=== PATIENT | female | born 1995 | race Caucasian/White ===

== ENCOUNTER 2017-10-27 09:04 | Emergency (ER) | payer OTHER ==
--- NOTE | 2017-10-27 09:06 | ED Physician Documentation ---
PD HPI FEMALE - Stated complaint Stated Complaint: 19 WEEKS PREG/BLEEDING - History obtained from History obtained from: Patient - History of Present Illness Timing - onset: How many hours ago (1), Today Timing - duration: Hours (1) Timing - details: Abrupt onset (She says she had vaginal pain and abrupt significant red bleeding during intercourse this morning. No abdominal pain per se. She is 19 weeks with good so far.) Associated symptoms: Vaginal pain, Vaginal bleeding. 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 denies: Abdominal Pain, Vomiting, Diarrhea Skin: denies: Rash, Lesions Musculoskeletal: denies: Neck pain, Back pain, Extremity pain Neurologic: denies: Generalized weakness, Near syncope, Syncope PD PAST MEDICAL HISTORY - Past Medical History Cardiovascular: None Respiratory: None Neuro: None Endocrine/Autoimmune: None - Present Medications Home Medications: Ambulatory Orders Medication Instructions Recorded Confirmed Mupirocin 1 applic TP TID #15 oint...g. 10/27/17 PD ED PE NORMAL - Vitals Vital signs reviewed: Yes - General General: Alert and oriented X 3, No acute distress, Well developed/nourished - HEENT HEENT: Moist mucous membranes, Pharynx benign - Neck Neck: Supple, no meningeal sign, No adenopathy - Cardiac Cardiac: RRR, No murmur - Respiratory Respiratory: Clear bilaterally - Abdomen Abdomen: Normal bowel sounds, Soft, Non tender, Non distended, Other (bedside U/ S showing normal IUP c/w dates, good FHR, and anterior placenta. ) - Female Female : Brim Flexer present, Other (No cervical bleeding. Some red blood and clots in the anterior vault. Right inner labial upper portion with 1.5 cm mucosal tear just to the submucosal layer. ) - Rectal Rectal: Deferred - Back Back: No CVA TTP - Derm Derm: Normal color Results - Vitals Vitals: Vital Signs - 24 hr 10/27/17 10:25 Temperature 36.9 C Heart Rate 72 Respiratory 16 Rate Blood Pressure 111/65 O2 Saturation 100 Oxygen O2 Source Room air - Labs Labs: Laboratory Tests 10/27/17 10/27/17 10/27/17 09:30 09:30 09:30 WBC 7.0 RBC 4.21 Hgb 13.0 Hct 36.4 L MCV 86.5 MCH 30.9 MCHC 35.7 RDW 14.1 Plt Count 216 MPV 7.4 L Neut # 5.3 Lymph # 0.9 L [place] # 0.6 Eos # 0.2 Baso # 0.0 Absolute Nucleated RBC 0.00 Nucleated RBC % 0.0 Sodium 134 L Potassium 3.3 L Chloride 105 Carbon Dioxide 22 Anion Gap 7.0 BUN 7 Creatinine 0.6 Estimated GFR (MDRD) 127 Glucose 79 Calcium 9.0 Total Bilirubin 0.3 AST 18 ALT 16 Alkaline Phosphatase 34 L Total Protein 6.6 L Albumin 3.3 Globulin 3.3 Albumin/Globulin Ratio 1.0 Lipase 12 L Blood Type A POSITIVE Antibody Screen NEGATIVE PD MEDICAL DECISION MAKING - ED course Complexity details: considered differential (Initial concern with her being and significant vaginal bleeding was for miscarriage. An IV was started and blood count and typing was done. Her vitals were good however. Bedside ultrasound showed normal intrauterine with an anterior placenta and no signs of bleeding. There is good heartbeat for the fetus. Pelvic exam was then done which showed only little bit of blood in the anterior portion of the vaginal vault. There is no bleeding come from the cervix. Inspection of the inner labia showed actual mucosal tear without any current bleeding until I palpated the area and it was a 1-1/2 cm tear to the submucosal tissue and not any deep structures. He did start using bleeding a little bit at that time. It appeared to be a vaginal source of the bleeding and no signs of miscarriage nor uterine bleeding which was great.), d/w patient Departure - Departure Disposition: 01 Home, Self Care Clinical Impression: Vaginal bleeding Qualifiers: Weeks of gestation: 19 weeks Qualified Code(s): Z3A.19 - 19 weeks gestation of Labial tear Qualifiers: Encounter type: initial encounter Qualified Code(s): S31.41XA - Laceration without foreign body of vagina and vulva, initial encounter Condition: Stable Record reviewed to determine appropriate education?: Yes Instructions: ED Laceration Vaginal Non Obstetric Follow-Up: NORAH Colon [Provider Group] Prescriptions: Mupirocin 1 applic TP TID #15 oint...g. Comments: Cleanse the area with warm water 2 3 times a day and apply ointment such as mupirocin or antibiotic ointment. This should heal up well over the next week. Follow-up with your ADAPTIVE PHYSICAL EDUCATION TEACHER on the as planned. Follow-up sooner if increased pain or significant bleeding again or any concern of infection. Tylenol or ibuprofen are okay for pain at this point in . Discharge Date/Time: 10/27/17 11:06
[2017-10-27] MEDS ORDERED: SODIUM CHLORIDE 0.9% 1,000 ML IV ONE (09:14)
[2017-10-27 09:42] LABS: BASOPHILS % (AUTO) 0.4 %; EOSINOPHILS # (AUTO) 0.2 10^3/uL (0.0-0.7); EOSINOPHILS % (AUTO) 2.8 %; LYMPHOCYTES # (AUTO) 0.9 10^3/uL (1.5-3.5); LYMPHOCYTES % (AUTO) 13.4 %; MEAN CORPUSCULAR HEMOGLOBIN 30.9 pg (27.0-31.0); MEAN CORPUSCULAR HGB CONC 35.7 g/dL (32.0-36.0); MEAN CORPUSCULAR VOLUME 86.5 fL (81.0-99.0); MEAN PLATELET VOLUME 7.4 fL (7.9-10.8); MONOCYTES # (AUTO) 0.6 10^3/uL (0.0-1.0); NEUTROPHILS # (AUTO) 5.3 10^3/uL (1.5-6.6); NEUTROPHILS % (AUTO) 75.4 %; PLT - PLATELET COUNT 216 10^3/uL (130-450); RED BLOOD COUNT 4.21 10^6/uL (4.20-5.40); RED CELL DISTRIBUTION WIDTH 14.1 % (12.0-15.0)
[2017-10-27 09:50] LABS: ALBUMIN 3.3 g/dL (3.2-5.5); BILIRUBIN,TOTAL 0.3 mg/dL (0.2-1.0); CREATININE 0.6 mg/dL (0.4-1.0); TOTAL PROTEIN 6.6 g/dL (6.7-8.2)
[2017-10-27] MEDS ORDERED: KETOROLAC 15 MG/ML VIAL IVP STA (10:16)
[2017-10-27] MEDS ORDERED: MUPIROCIN 2% OINT 1 GM TOP STA (10:16)
[2017-10-27] MEDS ORDERED: ACETAMINOPHEN 325 MG TABLET PO STA (10:16)
[2017-10-27 10:34] VITALS: BP 111/65
== END 2017-10-27 11:06 | disposition home or self-care (01) ==
LOC: ED 09:04
DX: O9A.212 Injury, poisoning and certain other consequences of external causes complicating pregnancy, second trimester (principal); S31.41XA Laceration without foreign body of vagina and vulva, initial encounter; X58.XXXA Exposure to other specified factors, initial encounter; N93.9 Abnormal uterine and vaginal bleeding, unspecified; Z3A.19 19 weeks gestation of pregnancy
CPT/HCPCS: 36415; 80053; 83690; 85025; 86850; 86900; 86901; 99283; A9270

== ENCOUNTER 2018-03-03 08:00 | Outpatient (CLI) | payer OTHER | END 2018-03-03 08:01 | disposition home or self-care (01) | LOC: LAB.R 08:00 | PROVIDERS: ATTEND Registered Nurse | DX: Z36.9 Encounter for antenatal screening, unspecified (principal) | CPT/HCPCS: 87086; 87491; 87591; 87797 ==

== ENCOUNTER 2018-03-03 11:07 | Outpatient (CLI) | payer OTHER ==
[2018-03-03] MEDS ORDERED: LACTATED RINGERS 2,000 ML IV ONE (11:15)
[2018-03-03] MEDS ORDERED: SODIUM CHLORIDE FLUSH 0.9% 10 ML SYRINGE ONE ×2 (11:15→14:58)
[2018-03-03] MEDS: LACTATED RINGERS 1,000 ML IV ONE ×2 (11:40→12:48)
[2018-03-03 15:11] VITALS: BP 108/59
--- NOTE | 2018-03-03 15:26 | Ultrasound Report ---
Procedure Date: 03/03/2018 Accession Number: [id number] / [id number] Procedure: US - OB F/U or Repeat CPT Code: FULL RESULT: EXAM: FOLLOW-UP OBSTETRICAL ULTRASOUND EXAM DATE: 03/03/2018 02:06 PM. CLINICAL HISTORY: Growth, biophysical profile, and MITZI. Office MITZI of 4.6 with transverse lie. COMPARISON: None. TECHNIQUE: Real-time sonographic evaluation of the fetus performed by the film flat inspector. Multiple sales representative health insurance static images were saved for review. DATING: Established EGA 36 weeks 4 days with JELENA 03/27/2018 based on established JELENA. EGA 37 weeks 6 days with JELENA 03/18/2018 based on the current ultrasound. GENERAL EVALUATION Hedrick . Cardiac activity: 152 bpm. movement: Present. Presentation: Cephalic. Placenta: Anterior position. Amniotic fluid: Normal. MITZI 13.5 cm. MVP 4 cm. BIOMETRY Bi-Parietal Diameter (BPD): 9.3 cm, 37 weeks 6 days Head Circumference (HC): 32.9 cm, 37 weeks 2 days Abdominal Circumference (AC): 34.5 cm, 38 weeks 3 days Femur Length (FL): 7.4 cm, 38 weeks 0 days Estimated Weight: 3498 gm. ANATOMY Not assessed MATERNAL STRUCTURES Cervix poorly seen due to late gestational age and nondistended bladder. IMPRESSION: 1. Hedrick intrauterine with gestational age 37 weeks 6 days based on current ultrasound. 2. Estimated weight is 3498 g. 3. Cephalic presentation. EXAM: BIOPHYSICAL PROFILE Breathing = 2 Movement = 2 Tone = 2 Amniotic Fluid = 2 Total 02/19 IMPRESSION: 1. Biophysical profile score 8 of 8. RUTH ANN
== END 2018-03-03 16:20 | disposition home or self-care (01) ==
LOC: WFO 11:07 → FBP 11:09 → WFO 16:20
PROVIDERS: ATTEND Registered Nurse
DX: O41.03X0 Oligohydramnios, third trimester, not applicable or unspecified (principal); Z3A.36 36 weeks gestation of pregnancy; Z36.9 Encounter for antenatal screening, unspecified
CPT/HCPCS: 59025; 76816; 76819; 87086; 87491; 87591; 87797; 96360; 96361; J7120; 99214

== ENCOUNTER 2018-03-04 16:08 | Outpatient (CLI) | payer OTHER | END 2018-03-04 16:09 | disposition home or self-care (01) | LOC: LAB.R 16:08 | PROVIDERS: ATTEND Obstetrics & Gynecology | DX: Z11.3 Encounter for screening for infections with a predominantly sexual mode of transmission (principal) | CPT/HCPCS: 87491; 87591 ==

== ENCOUNTER 2018-03-08 13:53 | Outpatient (CLI) | payer OTHER ==
[2018-03-08 14:21] VITALS: BP 111/68
== END 2018-03-08 14:45 | disposition home or self-care (01) ==
LOC: WFO 13:53 → FBP 13:58 → WFO 14:45
PROVIDERS: ATTEND Obstetrics & Gynecology
DX: O43.893 Other placental disorders, third trimester (principal); Z3A.37 37 weeks gestation of pregnancy
CPT/HCPCS: 59025

== ENCOUNTER 2018-03-11 09:38 | Outpatient (CLI) | payer OTHER ==
[2018-03-11 09:52] VITALS: BP 112/69
== END 2018-03-11 10:20 | disposition home or self-care (01) ==
LOC: WFO 09:38 → FBP 09:46 → WFO 10:20
PROVIDERS: ATTEND Obstetrics & Gynecology
DX: O36.8130 Decreased fetal movements, third trimester, not applicable or unspecified (principal); Z3A.37 37 weeks gestation of pregnancy
CPT/HCPCS: 59025

== ENCOUNTER 2018-03-17 12:05 | Outpatient (CLI) | payer OTHER ==
[2018-03-17 12:17] VITALS: BP 110/61
--- NOTE | 2018-03-18 11:30 | HISTORY & PHYSICAL EXAMINATION ---
DATE OF SERVICE: 03/17/2018 Physician: Scout Garcia MD NOTE FOR LABOR AND DELIVERY ENCOUNTER ON 03/16/2018 HISTORY OF PRESENT ILLNESS: Patient is a 22-year-old, primigravida at 38 weeks and 4 days EGA who had a low amniotic fluid volume noted a week ago. Since then, it has rebounded to 10.66. She feels good movement. Today's NST is reactive, category 1. Baseline is 150s without decels and moderate variability. There are no uterine contractions noted. ASSESSMENT: Reactive nonstress test. Requires recheck with repeat biophysical profile (BPP) later this week to ensure that amniotic fluid volume remains normal. PLAN: Ensure that BPP is scheduled for later in the week, and she has an OB visit on Saturday. TD: 03/18/2018 08:39 LARISA
== END 2018-03-17 12:49 | disposition home or self-care (01) ==
LOC: WFO 12:05 → FBP 12:07 → WFO 12:49
PROVIDERS: ATTEND Obstetrics & Gynecology
DX: O41.03X0 Oligohydramnios, third trimester, not applicable or unspecified (principal); Z3A.38 38 weeks gestation of pregnancy
CPT/HCPCS: 59025

== ENCOUNTER 2018-03-25 17:51 | Inpatient (IN) | payer OTHER ==
[2018-03-25] MEDS ORDERED: LACTATED RINGERS 1,000 ML IV ONE (21:23)
[2018-03-25] MEDS ORDERED: SODIUM CHLORIDE FLUSH 0.9% 10 ML SYRINGE ONE (21:26)
[2018-03-25] MEDS ORDERED: SODIUM CHLORIDE FLUSH 0.9% 10 ML SYRINGE IVP PRN (21:28)
[2018-03-25 21:50] LABS: BASOPHILS % (AUTO) 0.2 %; EOSINOPHILS % (AUTO) 0.4 %; HGB - HEMOGLOBIN 11.3 g/dL (12.0-16.0); LYMPHOCYTES # (AUTO) 0.7 10^3/uL (1.5-3.5); LYMPHOCYTES % (AUTO) 5.2 %; MEAN CORPUSCULAR HEMOGLOBIN 26.3 pg (27.0-31.0); MEAN CORPUSCULAR HGB CONC 33.8 g/dL (32.0-36.0); MEAN CORPUSCULAR VOLUME 77.9 fL (81.0-99.0); MONOCYTES # (AUTO) 1.1 10^3/uL (0.0-1.0); MONOCYTES % (AUTO) 8.4 %; NEUTROPHILS % (AUTO) 85.8 %; PLT - PLATELET COUNT 233 10^3/uL (130-450); RED CELL DISTRIBUTION WIDTH 15.5 % (12.0-15.0); WHITE BLOOD COUNT 12.8 x10^3/uL (4.8-10.8)
[2018-03-25] MEDS ORDERED: PENICILLIN G POTASSIUM 5,000,000 UNIT in SODIUM CHLORIDE 0.9% MINIBAG 100 ML IV ONE (21:59)
[2018-03-25] MEDS ORDERED: fentaNYL 100 MCG/2 ML VIAL IVP PRN (22:00)
[2018-03-25] MEDS ORDERED: LACTATED RINGERS 1,000 ML IV SCH (22:00)
[2018-03-25] MEDS ORDERED: ONDANSETRON 4 MG/2 ML VIAL IVP PRN ×2 (22:01→23:37)
[2018-03-25] MEDS ORDERED: fent/BUPIV 2 MCG/0.125% 250 ML EP ONE (22:44)
[2018-03-25] MEDS ORDERED: METOCLOPRAMIDE 10 MG/2 ML VIAL IVP PRN (23:37)
[2018-03-25] MEDS ORDERED: LACTATED RINGERS 500 ML IV ONE (23:37)
[2018-03-25] MEDS ORDERED: ePHEDrine 50 MG/ML VIAL IVP PRN (23:37)
[2018-03-25] MEDS ORDERED: NALOXONE 0.4 MG/ML VIAL IVP PRN (23:37)
[2018-03-25] MEDS ORDERED: NALBUPHINE 10 MG/ML AMP IVP PRN (23:37)
[2018-03-25] MEDS ORDERED: diphenhydrAMINE INJ 50 MG/ML VIAL IVP PRN (23:37)
[2018-03-26] MEDS ORDERED: TERBUTALINE 1 MG/ML VIAL SUBQ ONE (00:21)
[2018-03-26] MEDS ORDERED: SODIUM CHLORIDE 0.9% 1,000 ML IV ONE (00:23)
[2018-03-26] MEDS ORDERED: SODIUM CHLORIDE FLUSH 0.9% 10 ML SYRINGE IVP SCH (01:00)
[2018-03-26] MEDS ORDERED: OXYTOCIN/SODIUM CHLORIDE 500 ML IV ONE (01:05)
[2018-03-26] MEDS ORDERED: PENICILLIN G POTASSIUM 2,500,000 UNIT in SODIUM CHLORIDE 0.9% 100ML 100 ML IV SCH (02:00)
[2018-03-26] MEDS ORDERED: LIDOCAINE 1% 50 ML MDV ONE (02:55)
[2018-03-26] MEDS ORDERED: miSOPROStol 200 MCG TABLET PR ONE ×2 (03:05→04:25)
[2018-03-26] MEDS ORDERED: METHYLERGONOVINE 0.2 MG/ML AMP ONE (03:05)
[2018-03-26] MEDS ORDERED: METHYLERGONOVINE 0.2 MG/ML AMP IM ONE (03:06)
[2018-03-26] MEDS ORDERED: CARBOPROST TROMETHAMINE 250 MCG/ML AMP IM ONE ×2 (03:07→03:08)
[2018-03-26] MEDS ORDERED: LACTATED RINGERS 2,000 ML IV ONE (03:10)
[2018-03-26] MEDS ORDERED: DIPHENOX/ATROPINE 2.5/0.025 MG TABLET PO ONE ×2 (03:25→03:29)
--- NOTE | 2018-03-26 03:25 | HISTORY & PHYSICAL EXAMINATION ---
DATE OF SERVICE: 03/25/2018 Physician: Yoana Crowley MD CHIEF COMPLAINT: Labor. HISTORY OF PRESENT ILLNESS: The patient has had intermittent contractions all day long and she felt like they were strong enough this evening to come in for evaluation. They are very painful and happening every 3 minutes. No leaking of water at home. No bleeding at home. She was feeling good movement at home. REVIEW OF SYSTEMS: No URI symptoms. No fevers, no nausea or vomiting. PAST MEDICAL HISTORY: Negative. PAST SURGICAL HISTORY: Tonsillectomy. OBSTETRICAL HISTORY: Patient is a G1, P0. Her due date is 03/27/2018 by last menstrual period and by 6-week ultrasound. She had her care transferred from the [facility] at 36 weeks. There, her had been uncomplicated except for a bout of chlamydia that was treated in December with immediate test of cure that was negative, followed by another test of cure here that was negative. After transferring care here, an ultrasound was performed to verify presentation and her amniotic fluid index was found to be low at that time at 4.3. She had an SROM workup that was normal. She was aggressively hydrated, and the next day this improved to 13. She also had a grade 3 placenta. Following this, she had biweekly NST that were normal, as well as weekly BPPs that were normal. She did not have any further episodes of oligohydramnios. labs include blood type A positive, RPR negative, rubella immune, HIV negative, hep B negative, cystic fibrosis negative. Hematocrit 35. One-hour glucose 101, normal anatomy screening with an anterior placenta. ALLERGIES: NO KNOWN DRUG ALLERGIES. MEDICATIONS 1. vitamins daily. 2. Valtrex 500 mg daily. 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 She does not smoke, drink or do drugs and she reports having good support at home. FAMILY HISTORY: No anesthesia complications. OBJECTIVE VITAL SIGNS: The patient is afebrile with normal vital signs. GENERAL: She is alert and pleasant, in no apparent distress. She is resting comfortably, and smiling and talking freely between contractions. During contractions. She is breathing through contractions, crying out, and writhing. ABDOMEN: Soft, nontender and gravid. Estimated weight 7 pounds by [place]. Last vaginal examination was 4 cm dilated, 100% effaced, and 0 station with the nurse. NST is category 1 and has been throughout most of the night with a baseline of 150, moderate long-term variability, accelerations present, decelerations absent. From [id number], the patient had a period of shift in baseline to tachycardia, with a baseline of 170 beats per minute. Moderate long-term variability was maintained. The patient had brief, either variable decelerations versus return to baseline that lasted about 10 seconds with a modesto to 150. BLEEDING: Examination of the pads revealed mucousy normal amount of bloody show on this current pad. Prior pad had an 8 cm diameter area that was coated with bright red blood that was not completely soaking through that area of the pad. IMPRESSION AND PLAN A 22-year-old G1, at 39 weeks and 5 days by last menstrual period, consistent with a 6-week ultrasound, who presents in active spontaneous labor with cervical change here from 3-4 cm while in triage. 1. Will admit for labor. 2. The patient is group B streptococcus positive, and she will receive penicillin for this. 3. The patient had vaginal bleeding that was brisker than normal. Since that time, the amount of bleeding has been a very normal amount of bloody show. She is pain-free between contractions, her uterus is nontender, her current heart tracing is category 1, and her contractions are not showing any abruption pattern. She has had multiple ultrasounds without evidence of placenta previa. At this point, I feel like her bleeding is just normal bloody show for her. However, we will remain aware of her ongoing bleeding. 4. Episode of tachycardia: I do feel like this was what was formerly referred to as a prolonged acceleration. Prior to the episode in the 170s and following, the patient had a baseline of the 150s. During the period of tachycardia, she maintained moderate long-term variability. In the setting of vaginal bleeding, the tachycardia is a bit more concerning, but again NST is now category 1, the patient is not tachycardic. She has no other symptoms and she is not showing any current signs of placental abruption. 5. While I was coming in to assess her, we did an IV fluid bolus and made her n.p.o. The patient would like to go ahead and get an epidural and, at that point, we will change or to clear fluids and we can saline lock her IV if she desires. 6. History of chlamydial infection during . We will strongly encourage antibiotic eye prophylaxis. 7. issues potentially: None identified. The patient is status post Tdap vaccine. She is rubella immune and Rh positive, with no significant medical history. TD: 03/25/2018 22:51 LARISA
[2018-03-26] MEDS ORDERED: ONDANSETRON ODT 4 MG TABLET TL PRN (03:53)
[2018-03-26] MEDS ORDERED: HYDROCORTISONE/PRAMOXINE 10 GM PR PRN (03:53)
[2018-03-26] MEDS ORDERED: diphenhydrAMINE 25 MG CAPSULE PO PRN (03:53)
[2018-03-26] MEDS ORDERED: OXYTOCIN/SODIUM CHLORIDE 250 ML IV ONE (03:53)
[2018-03-26] MEDS ORDERED: WITCH HAZEL/GLYCERIN 1 EACH MED..PAD TOP PRN (04:06)
--- NOTE | 2018-03-26 05:48 | PROCEDURE REPORT ---
DATE OF SERVICE: 03/26/2018 Physician: Yoana Crowley MD DELIVERY: Spontaneous vaginal delivery at term with a hemorrhage. PREDELIVERY DIAGNOSES 1. Intrauterine at 39 weeks and 5 days. 2. Group B strep positive. 3. Spontaneous labor. 4. Vaginal bleeding. POST-DELIVERY DIAGNOSES 1. Status post spontaneous vaginal delivery. 2. hemorrhage, likely due to placental site bleeding and a right vaginal sulcal laceration. PHYSICIAN: Yoana Crowley MD. ANESTHESIA: Epidural. ESTIMATED BLOOD LOSS: 1200 mL. COUNTS: Correct x2. COMPLICATIONS: None apparent. DISPOSITION: Good condition. FINDINGS: 1. Thin meconium-stained amniotic fluid. 2. Liveborn female, Apgars 8 at one minute and 9 at five minutes, she appears AGA. 3. Bilateral periurethral lacerations and a right vaginal sulcal laceration. ANTEPARTUM COURSE: The patient had an uncomplicated , except for a brief period of oligohydramnios that resolved. She also had a grade-3 placenta and was receiving monitoring for these issues. LABOR COURSE: The patient was admitted in spontaneous labor, and at the time of admission, she had vaginal bleeding that was more than expected for labor; however, it was not a large amount, and it was really just this first episode of bleeding that was abnormal. Throughout the rest of the labor, the patient had normal amounts of bloody show. There was a period of time around midnight, where the tracing became category 2 with variable decelerations. These resolved with oxygen and position changes. At that time, the patient was found to be complete in zero station with an intact bag. Intrauterine resuscitation was successful, and the patient was able to labor down. She began having small variables. The head was low, and so pushing was commenced. DELIVERY: The patient pushed for 17 minutes to deliver OA over an intact perineum. There was no nuchal cord. The shoulders and body were easily delivered. The baby was placed on mom's abdomen, and she was warmed, dried, and stimulated. The umbilical cord was left pulsating. The patient had abnormal bleeding from the time of the delivery of the onward. Prior to the delivery of the placenta, there was a steady mild flow of blood that is not typically seen. The umbilical cord was clamped x2 and cut by the father of the baby. Cord blood was obtained for typing, and then the cord was drained. The placenta was delivered about a minute later intact with a 3-vessel cord. It was delivered with a maternal push. There was an adherent clot covering about 20% of the placental surface. The patient had a hemorrhage that started with the of the infant and prior to the placenta. The patient had an ongoing bleed that was persistent and over about 10 minutes time added up to 1200 mL of blood loss. During this time, she received continuous fundal massage with intermittent bimanual massage. Her uterine tone remained excellent throughout. I did not feel any uterine segment atony or floppiness. She received IV pitocin at the time of the clamping of the umbilical cord, 800 mcg of Cytotec [place], 1 dose of Methergine IM, and 1 dose of Hemabate IM. Her IV fluids were opened wide open, and a second IV was placed. Her type and screen was changed to a type and cross. I did a bedside ultrasound, which revealed no products of conception within the uterus, and again the placenta appeared to be intact. Her fundus was firm and 3 cm below the umbilicus during the entire hemorrhage. After about 10 minutes, the bleeding slowed down to a normal amount. She did have a laceration in her right sulcus that was pumping and was probably contributing to a small percent of the estimated blood loss. The focal laceration was closed with a [id number] of 2-0 Vicryl with good hemostasis resulting. Her right periurethral laceration was repaired with interrupted sutures of 2-0 Vicryl. The left periurethral was less deep and not bleeding, and this did not require repair. The patient is tolerating her blood loss well. She is resting comfortably and is feeding her baby. POTENTIAL ISSUES: We will encourage the patient to hydrate and to not get up without assistance, due to her hemorrhage. I will not check a repeat hematocrit, unless she is symptomatic. We will monitor for any excessive ongoing blood losses. Otherwise, no potential problems identified. She is healthy and is status post Tdap vaccination. She is Rh positive and rubella immune. TD: 03/26/2018 04:02 LARISA
[2018-03-26] MEDS: DOCUSATE SODIUM 100 MG CAPSULE PO SCH ×2 (09:41→20:24)
[2018-03-26] MEDS ORDERED: SODIUM CHLORIDE FLUSH 0.9% 10 ML SYRINGE ONE (09:49)
--- NOTE | 2018-03-26 11:20 | PROVIDER PROGRESS NOTE ---
Objective - Vital Signs/Intake & Output Vital Signs: Vital Signs x48h Temp Pulse Resp BP Pulse Ox 03/26/18 11:14 99.9 F H 86 18 103/52 L 99 03/26/18 07:57 98.4 F 92 16 104/57 L 99 03/26/18 06:15 92 18 112/62 100 03/26/18 03:50 98.8 F Intake & Output: Intake & Output 03/23/18 03/24/18 03/25/18 03/26/18 23:59 23:59 23:59 23:59 Output Total 1400 Balance -1400 - Lab Results Fish Bones: 03/25/18 21:30 Other Labs: Lab Results x24hrs 03/25/18 03/25/18 Range/Units 21:30 21:30 WBC 12.8 H (4.8-10.8) x10^3/uL RBC 4.30 (4.20-5.40) 10^6/uL Hgb 11.3 L (12.0-16.0) g/dL Hct 33.5 L (37.0-47.0) % MCV 77.9 L (81.0-99.0) fL MCH 26.3 L (27.0-31.0) pg MCHC 33.8 (32.0-36.0) g/dL RDW 15.5 H (12.0-15.0) % Plt Count 233 (130-450) 10^3/uL MPV 8.0 (7.9-10.8) fL Neut # (Auto) 11.0 H (1.5-6.6) 10^3/uL Lymph # (Auto) 0.7 L (1.5-3.5) 10^3/uL [place] # (Auto) 1.1 H (0.0-1.0) 10^3/uL Eos # (Auto) 0.0 (0.0-0.7) 10^3/uL Baso # (Auto) 0.0 (0.0-0.1) 10^3/uL Absolute Nucleated RBC 0.00 x10^3/uL Nucleated RBC % 0.0 /100WBC Blood Type A POSITIVE Antibody Screen NEGATIVE Crossmatch IS Only See Detail Assessment/Plan - Problem List (1) hemorrhage Impression: S: feeling good, no problems. Eating, ambulating, urinating, well. Mood is OK, no significant pain. Not dizzy or light headed. No CHUNG or CP. O: AVSS, alert smiling, cuddling baby, NAD Abd soft, nt/nd Fundus firm 2cm below U Trace LE edema bilat A/P: 22yo P1 PPD#0 s/p at term complicated by 1200cc PPH due to sulcal laceration and placenta site bleeding. Likely small abruption as well and placenta pathology is pending. Tolerating her (likely) anemia well, discussed hydration and slow position changes. Otherwise anticipate routine care. Rh+, RI, s/p Tdap.
[2018-03-26] MEDS: SIMETHICONE CHEW 80 MG TABLET PO SCH ×2 (11:57→14:57)
[2018-03-26] MEDS: ACETAMINOPHEN 500 MG TABLET PO PRN (23:05)
[2018-03-27] MEDS: ACETAMINOPHEN 500 MG TABLET PO PRN ×2 (10:01→18:16)
[2018-03-27] MEDS: IBUPROFEN 600 MG TABLET PO PRN ×2 (10:02→18:15)
[2018-03-27] MEDS: SIMETHICONE CHEW 80 MG TABLET PO SCH ×2 (10:02→18:14)
[2018-03-27] MEDS: DOCUSATE SODIUM 100 MG CAPSULE PO SCH ×2 (10:02→21:18)
--- NOTE | 2018-03-27 16:42 | PROVIDER PROGRESS NOTE ---
Objective - Vital Signs/Intake & Output Vital Signs: Vital Signs x48h Temp Pulse Resp BP Pulse Ox 03/27/18 09:29 97.9 F 72 17 108/66 100 Intake & Output: Intake & Output 03/24/18 03/25/18 03/26/18 03/27/18 23:59 23:59 23:59 23:59 Intake Total 250 Output Total 1400 Balance -1150 - Lab Results Fish Bones: 03/25/18 21:30 Assessment/Plan - Problem List (2) care following vaginal delivery Impression: S: feeling good, no problems. Eating, ambulating, urinating, well. Mood is OK, no significant pain. [place] light-headed with ambulation in hallway this am but not when OOB in her room. O: AVSS (some lower BPs but HR is normal) , alert smiling, baby with a good latch, NAD Abd soft, nt/nd Fundus firm 2cm below U Trace LE edema bilat A/P: 22yo P1 PPD#1 s/p at term complicated by 1200cc PPH due to sulcal laceration and placenta site bleeding. Likely small abruption as well and placenta pathology is pending. Tolerating her (likely) anemia well, discussed hydration and slow position changes. Otherwise anticipate routine care. Rh+, RI, s/p Tdap.
--- NOTE | 2018-03-28 07:34 | Discharge Plan ---
Discharge Plan Disposition: Home, Self Care Condition: Good Prescriptions: Docusate Sodium 100 mg PO DAILY #60 capsule Ibuprofen [Motrin] 600 mg PO Q6H PRN #60 tablet PRN Reason: Abdominal Pain Iron Polysaccharide Complex [Pro Fe] 180 mg PO DAILY #45 capsule Diet: Regular Activity Restrictions: No Restrictions Additional Instructions or Follow Up instructions: See written instructions from labor and delivery Go to ER if you have heavy bleeding No Smoking: If you smoke, Please STOP! Call for help. Follow-up with: Marisol Santizo DO [Provider Admit Priv/Credential] - 2 Weeks
[2018-03-28 08:39] VITALS: BP 118/67
[2018-03-28] MEDS: SIMETHICONE CHEW 80 MG TABLET PO SCH (09:30)
[2018-03-28] MEDS: DOCUSATE SODIUM 100 MG CAPSULE PO SCH (09:30)
--- NOTE | 2018-03-28 09:55 | DISCHARGE SUMMARY ---
Physician: Yoana Crowley MD DATE OF ADMISSION: 03/25/2018 DATE OF DISCHARGE: 03/28/2018 ADMISSION DIAGNOSES 1. Intrauterine at 39 weeks 5 days. 2. Active spontaneous labor. 3. Group B strep positive. DISCHARGE DIAGNOSES 1. Status post spontaneous vaginal delivery at term. 2. hemorrhage, due to placental site bleeding. 3. Likely acute blood loss anemia. OPERATIONS PROCEDURES: 03/26/2018, spontaneous vaginal delivery of a liveborn female. This was comp licated by the hemorrhage. The patient also had a right vaginal sulcal laceration. HOSPITAL COURSE: The patient was admitted in active spontaneous labor and had a very uncomplicated l abor course. She received penicillin for her group B strep. She delivered without incident, but the n had a hemorrhage, due to placental site bleeding. She never had atony. She did not hav e lower uterine segment bogginess. Her total blood loss was 1200 mL. She was tolerating her blood l oss well without headaches or chest pain. She was feeling a little bit lightheaded, when walking marlen g distances, but not around her room. hematocrit was not checked, as her blood loss was n ot symptomatic. Otherwise, the patient did very well. By day 2, she was eating, ambulating, and urinating without difficulties. She was well, and she did not have any significant pain. No mo od problems. DISCHARGE EXAMINATION: Afebrile with normal vital signs. The patient is alert and smiling, in no ap parent distress. Abdomen soft, nontender, and nondistended. Fundus firm, nontender, and at the umbi licus. DISCHARGE DISPOSITION: Home. CONDITION: Good. OUTSTANDING LABS: None. FOLLOWUP: In 2 weeks with primary OB provider. DISCHARGE MEDICATIONS: Included: 1. vitamins daily. 2. Ibuprofen p.r.n. pain. 3. Colace to soften stool. 4. As well as iron 1 tablet daily. TD: 03/28/2018 07:49
--- NOTE | 2018-03-28 10:08 | Labor Flowsheet ---
Labor Flowsheet Datetime Report Generated by CPN: 03/28/2018 10:08 Datetime: 03/26/2018 11:16 Temperature (F): 99.9 Temperature (C): 37.7 Temperature (C): 37.7 Datetime: 03/26/2018 11:15 VITAL SIGNS NBP Sys/Stephanie/Mean (mmHg): 103 : 52 : 64 Pulse: 91 Datetime: 03/26/2018 06:19 SpO2 (%): 100 Datetime: 03/26/2018 03:05 Cervical Ripening Agents: Cytotec @ 800 Datetime: 03/26/2018 03:04 Stage of : Recovery Datetime: 03/26/2018 03:03 MEDICATIONS Pitocin (milliunits): Started @ 999 Datetime: 03/26/2018 03:00 UTERINE ACTIVITY Monitor Mode: External Frequency (min): 1.5-4 Quality: Strong Duration (sec): 60-120 Pattern: Normal: <= 5 Contractions in 10 Minutes Resting Tone (Palpate): Relaxed Contraction Comments: pushing ASSESSMENT A Monitor Mode: External US Variability: Moderate 6-25 bpm Accelerations: 15X15 Decelerations: Variable Category: Category II Comments: pushing Datetime: 03/26/2018 02:59 LaborFlag: Labor Datetime: 03/26/2018 02:49 Membrane Status: Ruptured Membranes Rupture Method: Artificial Amniotic Fluid Color: Light Meconium Amniotic Fluid Amount: Moderate Amniotic Fluid Odor: Normal Datetime: 03/26/2018 02:30 Antibiotics: Penicillin IV (Units) @ 2.5 Datetime: 03/26/2018 02:01 Actions for Decelerations: IV Bolus Datetime: 03/26/2018 01:56 COMMUNICATION Communication: Provider at Bedside Datetime: 03/26/2018 01:49 Patient Position/Activity: Left Lateral Datetime: 03/26/2018 01:40 Oxygen Method: Non-Rebreather Datetime: 03/26/2018 01:29 FHR Baseline Rate : 155 Datetime: 03/26/2018 00:25 VAGINAL EXAM Dilatation (cm): 10.0 Effacement (%): 100 Station: 0 Exam by: A Carline MD Datetime: 03/26/2018 00:13 Patient Care Comments: peanut ball Datetime: 03/26/2018 00:11 Vaginal Bleeding: Moderate Datetime: 03/25/2018 23:26 Antiemetics/Antacids: Zofran (mg) @ 4 Datetime: 03/25/2018 23:21 PATIENT CARE IV/Blood Work: IV Bolus Started Datetime: 03/25/2018 23:16 Communication Comments: Carline MD Datetime: 03/25/2018 23:10 Epidural Procedure: Loading Dose Datetime: 03/25/2018 23:05 Anesthesia Comments: catheter placed Datetime: 03/25/2018 23:02 ANESTHESIA Anesthesia Plans: Local Datetime: 03/25/2018 22:56 PROCEDURE TIME OUT Procedure Verify: Correct Patient Identity; Correct Side and Site are Marked; Accurate Procedure Co nsent Form; Agreement on Procedure to be Done; Correct Patient Position; Relevant Images and Results are Properly Labeled and Displayed; Addressed Need to Administer Antibiotics or Fluids for Irrigation ; Safety Precautions Based on Patient History or Medication Use Datetime: 03/25/2018 22:25 Analgesics/Sedatives: Fentanyl (mcg) @ 100
== END 2018-03-28 09:55 | disposition home or self-care (01) | DRG 774 ==
LOC: WFO 17:51 → FBP 17:53 → WFO 21:56 → FBP 03-26 11:26
PROVIDERS: ADMIT Obstetrics & Gynecology; ATTEND Obstetrics & Gynecology
PROC: 10E0XZZ Delivery of Products of Conception, External Approach (ICD-10-PCS; principal; 2018-03-26)
PROC: 0HQ9XZZ Repair Perineum Skin, External Approach (ICD-10-PCS; 2018-03-26)
PROC: 0UQMXZZ Repair Vulva, External Approach (ICD-10-PCS; 2018-03-26)
DX: O99.824 Streptococcus B carrier state complicating childbirth (principal); O46.93 Antepartum hemorrhage, unspecified, third trimester; O71.4 Obstetric high vaginal laceration alone; O71.82 Other specified trauma to perineum and vulva; Z3A.39 39 weeks gestation of pregnancy; Z37.0 Single live birth; O76 Abnormality in fetal heart rate and rhythm complicating labor and delivery
CPT/HCPCS: 85025; 86850; 86900; 86901; 86920; 99212

== ENCOUNTER 2018-12-11 10:59 | Day surgery (SDC) | payer OTHER ==
[~2018-12-11 10:59] MED LIST: BUPIVACAINE 0.25% PF 30 ML VIAL ONE; CEFAZOLIN SODIUM IN 0.9 % NACL 2 GM/100 ML BAG IV ONE
[2018-12-11 11:15] LABS: HCG UR QUAL NEGATIVE
--- NOTE | 2018-12-11 11:16 | ANESTHESIA ---
Pre-Anesthesia VS, & Labs - Diagnosis left wrist ganglion cyst - Procedure left wrist ganglion cystectomy Vital Signs: Temp Pulse Resp BP Pulse Ox 36.5 C 63 16 123/66 97 12/11/18 11:08 12/11/18 11:08 12/11/18 11:08 12/11/18 11:08 12/11/18 11:08 Height 5 ft 3 in Weight (kg) 62.6 kg Body Mass Index 26.5 - NPO >8 hours - Is Patient ?: No Home Medications and Allergies Home Medications: Ambulatory Orders Betamethasone/Propylene Glyc [Betamethasone Dp Aug 0.05% Crm] 15 gm TP 12/01/18 Pnv No.122/Iron/Folic Acid [ Multi Tablet] 1 each PO 12/01/18 Betamethasone/Propylene Glyc [Betamethasone Dp Aug 0.05% Crm] 15 gm TP 12/01/18 Pnv No.122/Iron/Folic Acid [ Multi Tablet] 1 each PO 12/01/18 Allergies/Adverse Reactions: Allergies Allergy/AdvReac Type Severity Reaction Status Date / Time No Known Drug Allergies Allergy Verified 12/01/18 11:37 Anes History & Medical History - Anesthetic History Anesthesia Complications: reports: No previous complications - Medical History Cardiovascular: reports: None Pulmonary: reports: None Gastrointestinal: reports: None Urinary: reports: None Musculoskeletal: reports: Other Endocrine/Autoimmune: Skin: reports: None Smoking Status: Never smoker - Surgical History Eyes Ears Nose Throat (EENT): Tonsil/Adenoidectomy Exam General: Alert Dental: WNL Mouth Opening: Greater than 4 Fingerbreadths Neck Mobility: Normal Mallampati classification: I Thyromental Distance: greater than 6 cm Respiratory: Lungs clear Cardiovascular: Regular rate, Normal S1, Normal S2 Plan Anesthesia Type: General Consent for Procedure(s) Verified and Reviewed: Yes Code Status: Attempt Resuscitation ASA classification: 1-Healthy patient Is this case an emergency?: No
[2018-12-11] MEDS ORDERED: LACTATED RINGERS 1,000 ML IV ONE (11:22)
[2018-12-11] MEDS ORDERED: ONDANSETRON 4 MG/2 ML VIAL IVP ONE (12:05)
[2018-12-11] MEDS ORDERED: fentaNYL 100 MCG/2 ML VIAL IVP ONE (12:05)
[2018-12-11] MEDS ORDERED: DEXAMETHASONE 4 MG/ML VIAL IVP ONE (12:05)
[2018-12-11] MEDS ORDERED: PROPOFOL 200 MG/20 ML VIAL IVP ONE (12:05)
[2018-12-11] MEDS ORDERED: KETOROLAC 30 MG/ML VIAL IVP ONE (12:05)
[2018-12-11] MEDS ORDERED: MIDAZOLAM 2 MG/2 ML VIAL IVP ONE (12:05)
[2018-12-11] MEDS ORDERED: LIDOCAINE-MPF 2% 5 ML VIAL IM ONE (12:05)
[2018-12-11] MEDS ORDERED: BUPIVACAINE 0.25% PF 30 ML VIAL SUBQ ONE ×2 (12:16→12:35)
[2018-12-11] MEDS ORDERED: oxyCODONE 5 MG TABLET PO PRN (12:51)
[2018-12-11] MEDS ORDERED: ONDANSETRON 4 MG/2 ML VIAL IVP PRN (12:51)
--- NOTE | 2018-12-11 12:55 | OPERATIVE REPORT ---
Operative Report - Other Other Information/Narrative: Date of Surgery: 11 Dec 2018 Pre-Op Diagnosis: Left dorsal wrist ganglion Procedure: Left wrist mass excision Postop Diagnosis: Same Primary Surgeon: Wisam Yeager Secondary Surgeon: John SANTAMARIA Complications: None Tourniquet Time: 29 minutes EBL: 5 cc Specimen: Left wrist mass Postoperative Protocol: Leave splint on until follow-up. Suture tails cut at 2 weeks. Range of motion from 2-6 weeks. Strengthening may begin at 6 weeks. Indication For Surgery: 23-year-old female who had a wrist mass over the dorsal radial aspect of the wrist for many years. It has been aspirated 5 times and returned every time. Her extensor pollicis longus tendon subluxate over it and is painful. She continues to have pain and nonoperative treatment has failed. The risks, benefits, and alternatives were discussed. Risks include pain, bleeding, infection, damage to nearby structures, numbness, lack of symptom relief, implant complications, nonunion, need for further surgery, DVT, PE, stroke, and . Written consent was obtained. Procedure in Detail: The patient was met in the pre-operative hold area on the day of the procedure. The operative extremity was signed and questions were answered. The patient was brought to the operating room and a general anesthetic was administered. Supine position was used and bony prominences were padded. Standard prepping and draping was performed. A time out confirmed patient identification, laterality, procedure, allergies, antibiotics, and images. An Esmarch was used to exsanguinate the limb and the tourniquet was elevated to 250 mmHg. The wrist was flexed to accentuate the mass. A 3 cm transverse incision in line with the wrist crease was made directly overlying the mass. Electrocautery was used to obtain hemostasis. Scissor dissection was used to separate the mass from the surrounding extensor tendons and fascia. I took care to identify all tendons and nerves and they were protected. Traction was pulled on the mass with an Allis and I carefully dissected around it tracing the stalk back to the wrist capsule. The stalk was excised with a 7 mm square section of capsule. The stalk tracked backed to the STT joint. The mass was passed off to the back table and sent for pathology. I carefully inspected the wound to ensure that all of the cyst had been fully excised. The wound was then irrigated copiously with sterile saline. A layered closure was performed with approximation of the extensor retinaculum and the underlying dermis. A running Monocryl was used in the skin. 5 cc of half percent Marcaine was placed near the wound. A sterile dressing was applied and a volar resting splint was applied. The patient was awakened and transferred to recovery room.
[2018-12-11] MEDS ORDERED: ACETAMINOPHEN 1,000 MG/100 ML 100 ML IV ONE (13:13)
[2018-12-11 13:53] VITALS: BP 111/62
[2018-12-11] MEDS ORDERED: ONDANSETRON 4 MG/2 ML VIAL ONE (13:56)
== END 2018-12-11 11:00 | disposition home or self-care (01) ==
LOC: SDS 10:59
PROVIDERS: ATTEND Orthopaedic Surgery
PROC: 0LB60ZZ Excision of Left Lower Arm and Wrist Tendon, Open Approach (ICD-10-PCS; principal; 2018-12-11 12:15)
DX: M67.432 Ganglion, left wrist (principal)
CPT/HCPCS: 25112; 81025; J0131; J0690; J7120

== ENCOUNTER 2019-02-01 09:53 | Emergency (ER) | payer OTHER ==
[2019-02-01 10:03] VITALS: BP 119/68
--- NOTE | 2019-02-01 10:19 | ED Physician Documentation ---
History of Present Illness - Stated complaint Stated Complaint: FEMALE - Chief complaint Chief Complaint: Abd Pain - History obtained from History obtained from: Patient - History of Present Illness Timing: Yesterday Pain level max: 3 Pain level now: 3 - Additonal information Additional information: similar to past UTI's. dysuria, urinary frequency for 2 days. No vaginal bleeding or discharge. Nothing makes it better. worse with urination. no changes in sexual partners. Review of Systems Constitutional: denies: Fever, Chills Respiratory: denies: Cough GI: denies: Vomiting, Diarrhea : reports: Control (IUD). denies: Now EGA Skin: denies: Rash PD PAST MEDICAL HISTORY - Past Medical History Cardiovascular: None Respiratory: None Endocrine/Autoimmune:  GI: None : None HEENT: None Psych: None Musculoskeletal: Other Derm: None - Past Surgical History HEENT: Tonsil/Adenoidectomy - Present Medications Home Medications: Ambulatory Orders Medication Instructions Recorded Confirmed Pnv No.122/Iron/Folic Acid 1 each PO 12/01/18 [ Multi Tablet] Cephalexin [Keflex] 500 mg PO Q6H #20 capsule 02/01/19 - Allergies Allergies/Adverse Reactions: Allergies Allergy/AdvReac Type Severity Reaction Status Date / Time No Known Drug Allergies Allergy Verified 02/01/19 09:59 - Social History Does the pt smoke?: No Smoking Status: Never smoker PD ED PE NORMAL - Vitals Vital signs reviewed: Yes - General General: Alert and oriented X 3, No acute distress, Well developed/nourished - HEENT HEENT: Moist mucous membranes - Neck Neck: Supple, no meningeal sign - Cardiac Cardiac: RRR - Respiratory Respiratory: No respiratory distress, Clear bilaterally - Abdomen Abdomen: Soft, Non tender, Non distended - Back Back: No CVA TTP, No spinal TTP - Derm Derm: Warm and dry - Neuro Neuro: Alert and oriented X 3 - Psych Psych: Normal mood, Normal affect Results - Vitals Vitals: Vital Signs - 24 hr 02/01/19 09:56 Temperature 36.3 C L Heart Rate 74 Respiratory 18 Rate Blood Pressure 119/68 O2 Saturation 100 Oxygen O2 Source Room air - Labs Labs: Laboratory Tests 02/01/19 10:15 Urine Color YELLOW Urine Clarity SL. CLOUDY Urine pH 6.0 Ur Specific [place] 1.020 Urine Protein 100 H Urine Glucose (UA) NEGATIVE Urine Ketones NEGATIVE Urine Occult Blood LARGE H Urine Nitrite NEGATIVE Urine Bilirubin NEGATIVE Urine Urobilinogen 0.2 (NORMAL) Ur Leukocyte Esterase TRACE H Urine RBC TNTC H Urine WBC 11-25 H Ur Squamous Epith Cells MOD Squamous H Urine Bacteria Few Urine Mucus Few Strands Ur Microscopic Review INDICATED Urine Culture Comments NOT INDICATED Urine HCG, Qual NEGATIVE PD MEDICAL DECISION MAKING - ED course Complexity details: reviewed results, considered differential, d/w patient ED course: Patient with what appears to be UTI. Will place on antibiotics and follow-up closely with her doctor. No evidence of pyelonephritis, sepsis. Patient counseled regarding signs and symptoms for which I believe and urgent re- evaluation would be necessary. Patient with good understanding of and agreement to plan and is comfortable going home at this time This document was made in part using voice recognition software. While efforts are made to proofread this document, sound alike and grammatical errors may o ccur. Departure - Departure Disposition: 01 Home, Self Care Clinical Impression: UTI (urinary tract infection) Qualifiers: Urinary tract infection type: acute cystitis Hematuria presence: with hematuria Qualified Code(s): N30.01 - Acute cystitis with hematuria Condition: Good Instructions: ED UTI Cystitis Female Follow-Up: TIFFANY MAGAÑA DO [Primary Care Provider] - Prescriptions: Cephalexin [Keflex] 500 mg PO Q6H #20 capsule Comments: Take all antibiotics until gone. Return if you worsen. Discharge Date/Time: 02/01/19 11:07
[2019-02-01 10:30] LABS: BILIRUBIN,URINE NEGATIVE (NEGATIVE); GLUCOSE, URINE (UA) NEGATIVE (NEGATIVE); KETONES,URINE (UA) NEGATIVE (NEGATIVE); LEUKOCYTE ESTERASE, URINE TRACE (NEGATIVE); NITRITE,URINE NEGATIVE (NEGATIVE); OCCULT BLOOD,URINE LARGE (NEGATIVE); PROTEIN,URINE 100 mg/dL (NEGATIVE); UROBILINOGEN,URINE 0.2 (NORMAL) E.U./dL (NORMAL)
[2019-02-01 10:31] LABS: CLARITY,URINE SL. CLOUDY (CLEAR); HCG UR QUAL NEGATIVE
[2019-02-01 10:36] LABS: BACTERIA,URINE Few /HPF (None Seen); MUCUS,URINE Few Strands; RBC,URINE TNTC /HPF (0-5); SQUAMOUS EPITHELIAL CELL,UR MOD Squamous (<= Few)
== END 2019-02-01 11:07 | disposition home or self-care (01) ==
LOC: ED 09:53
DX: N30.01 Acute cystitis with hematuria (principal)
CPT/HCPCS: 81001; 81003; 81025; 87086; 99283; 99284

== ENCOUNTER 2022-05-21 16:00 | Outpatient (CLI) | payer OTHER | END 2022-05-21 23:59 | disposition home or self-care (01) | LOC: LAB.WC 16:00 | PROVIDERS: ATTEND Nurse Practitioner | DX: Z36.85 Encounter for antenatal screening for Streptococcus B (principal) | CPT/HCPCS: 36415; 82950; 87797 ==

== ENCOUNTER 2022-05-22 08:48 | Outpatient (CLI) | payer OTHER | END 2022-05-22 08:49 | disposition home or self-care (01) | LOC: LAB 08:48 | PROVIDERS: ATTEND Obstetrics & Gynecology | DX: O09.93 Supervision of high risk pregnancy, unspecified, third trimester (principal) | CPT/HCPCS: 36415; 82950 ==

== ENCOUNTER 2022-05-31 18:40 | Outpatient (CLI) | payer OTHER ==
--- NOTE | 2022-06-01 11:22 | Ultrasound Report ---
PROCEDURE: OB F/U or Repeat INDICATIONS: SUPERVISION OF OUTSIDE/PRIOR DATING DATA: Last menstrual period (LMP): 09/13/2021. LMP-based estimated date of delivery (JELENA): 06/20/2022. First dating scan (date and location): Unknown. Estimated date of delivery (JELENA) from first dating scan: Unknown. TECHNIQUE: Real-time scanning was performed of the fetus, with image documentation and biometric measurements. Endovaginal scanning: None COMPARISON: None. FINDINGS: General: A single living intrauterine gestation is present. Presentation: Vertex Placenta: Placental position is post, without previa. Amniotic fluid index: 14.0 cm, normal for gestational age. heart rate: 145 beats per minute. Maternal cervical canal: 3.0 cm long; normal length is 2.5 cm or more. biometrics: Biparietal diameter: 9.0 cm, 36 week 3 day Head circumference: 39.9 cm, 36 week 0 day Abdominal circumference: 35.5 cm, 39 week 3 day Femur length: 6.8 cm, 35 week 2 day Estimated gestational age from dates: 37 week 1 day Composite gestational age from present scan: 36 week 6 day Estimated weight and percentile: 3302.5 g, 73rd percentile Measurement variability in biometric dating: +/- 10 days from 12-20 weeks gestation, +/- 2 weeks from 20-30 weeks gestation, +/- 3 weeks at 30 weeks gestation or more. Other: Not applicable. IMPRESSION: Single live intrauterine consistent with 36 week 6 day gestation by [facility] trasound Reviewed by: Randell Ulloa MD on 06/01/2022 10:21 AM [facility] Approved by: Randell Ulloa MD on 06/01/2022 10:21 AM [facility] Station ID: [id number]
== END 2022-05-31 18:41 | disposition home or self-care (01) ==
LOC: DI 18:40
PROVIDERS: ATTEND Obstetrics & Gynecology
DX: O09.93 Supervision of high risk pregnancy, unspecified, third trimester (principal); Z3A.36 36 weeks gestation of pregnancy

== ENCOUNTER 2022-06-18 11:33 | Inpatient (IN) | payer OTHER ==
[2022-06-18] MEDS ORDERED: miSOPROStoL 200 MCG TABLET PR PRN (12:00)
[2022-06-18] MEDS ORDERED: SODIUM CHLORIDE FLUSH 0.9% 10 ML SYRINGE IVP SCH (12:00)
[2022-06-18] MEDS ORDERED: OXYTOCIN 10 UNIT/ML VIAL IM PRN (12:00)
[2022-06-18] MEDS ORDERED: METHYLERGONOVINE 0.2 MG/ML VIAL IM PRN (12:00)
[2022-06-18] MEDS ORDERED: miSOPROStoL 200 MCG TABLET BC PRN (12:00)
[2022-06-18] MEDS ORDERED: lidocaine 1% 20 ML MDV ID PRN (12:00)
[2022-06-18] MEDS ORDERED: SODIUM CHLORIDE FLUSH 0.9% 10 ML SYRINGE IVP PRN (12:00)
[2022-06-18] MEDS ORDERED: CARBOPROST TROMETHAMINE 250 MCG/ML AMP IM PRN (12:00)
[2022-06-18] MEDS ORDERED: TERBUTALINE 1 MG/ML VIAL SUBQ PRN (12:00)
[2022-06-18] MEDS ORDERED: TRANEXAMIC ACID IN NACL 1,000 MG/100 ML BAG IV PRN (12:00)
[2022-06-18] MEDS ORDERED: LACTATED RINGERS 1,000 ML IV SCH ×2 (12:00→20:00)
[2022-06-18] MEDS ORDERED: fentaNYL 100 MCG/2 ML VIAL IVP PRN (12:00)
[2022-06-18] MEDS ORDERED: OXYTOCIN/SODIUM CHLORIDE 500 ML IV PRN (12:00)
[2022-06-18 12:59] LABS: BASOPHILS % (AUTO) 0.3 %; EOSINOPHILS # (AUTO) 0.1 10^3/uL (0.0-0.7); EOSINOPHILS % (AUTO) 1.5 %; HCT - HEMATOCRIT 35.7 % (37.0-47.0); HGB - HEMOGLOBIN 11.6 g/dL (12.0-16.0); LYMPHOCYTES # (AUTO) 0.9 10^3/uL (1.5-3.5); LYMPHOCYTES % (AUTO) 14.1 %; MEAN CORPUSCULAR HEMOGLOBIN 27.2 pg (27.0-31.0); MEAN CORPUSCULAR HGB CONC 32.5 g/dL (32.0-36.0); MEAN CORPUSCULAR VOLUME 83.8 fL (81.0-99.0); MEAN PLATELET VOLUME 10.1 fL (7.9-10.8); MONOCYTES # (AUTO) 0.6 10^3/uL (0.0-1.0); MONOCYTES % (AUTO) 8.8 %; NEUTROPHILS # (AUTO) 4.8 10^3/uL (1.5-6.6); NEUTROPHILS % (AUTO) 74.8 %; PLT - PLATELET COUNT 225 10^3/uL (130-450); RED BLOOD COUNT 4.26 10^6/uL (4.20-5.40); RED CELL DISTRIBUTION WIDTH 14.6 % (12.0-15.0); WHITE BLOOD COUNT 6.5 x10^3/uL (4.8-10.8)
--- NOTE | 2022-06-18 17:01 | HISTORY & PHYSICAL EXAMINATION ---
Admit History - Visit Reason Visit Reason: Contractions - : 4 Parity: 2 : 1 SAb Care: positive: [facility] Risk/History: positive: Genital herpes (Treated with acyclovir) Smoking Status: Never smoker - Mother's Labs Mother's Blood Type: positive: A Mother's RH: positive: Positive GBS: positive: Group B Step Negative Rubella Status: positive: Immune - Other Maternal History Other Maternal History: Med: Anxiety, HSV, Myopia Surg: Tonsillectomy Fam: DM Social: Denies VIDA, lives at home with AD and two other children Meds/Allgy - Home Medications Home Medications: Ambulatory Orders Medication Instructions Recorded Confirmed No122/Iron/Folic Acid 1 each PO 12/01/18 [ Multi Tablet] cephALEXin [Keflex] 500 mg PO Q6H #20 capsule 02/01/19 - Allergies Allergies/Adverse Reactions: Allergies Allergy/AdvReac Type Severity Reaction Status Date / Time No Known Drug Allergies Allergy Verified 02/01/19 09:59 Review of Systems - All Other Systems All Other Systems: reports: Reviewed and negative Physical - Abdominal Exam Vital Signs: Temp Pulse Resp BP Pulse Ox O2 Flow Rate 98.1 F 79 16 129/71 100 06/18/22 12:50 06/18/22 11:45 06/18/22 11:45 06/18/22 11:45 06/18/22 11:45 Contraction Frequency (min/apart): 4 Contraction Intensity: positive: Mild to moderate Uterine Resting Tone: positive: Soft - Monitoring Heart Rate Baseline: 140 Strip Review: positive: Category I - Presentation Presentation: positive: Vertex (Placenta posterior EFW 3800g Cephalic) - Vaginal Exam Membranes: positive: Membranes intact Dilation (in cm): 4 Effacement (%): 50 Station: positive: -2 Cervical Position: positive: Midposition Plan for Labor - Plan For Labor I expect patient to be DC'd or transferred within 96 hours.: Yes Plan for Labor: 27yo at 39.5w by LMP consistent with 8w US presenting in active labor - Admit - T&S, CBC - Consider AROM next exam, anticipate
--- NOTE | 2022-06-18 17:21 | PROVIDER PROGRESS NOTE ---
Labor Progress Note - Uterine Monitoring Uterine Monitoring Mode: positive: External toco Contraction Frequency (min/apart): 2-4 Contraction Intensity: positive: Moderate to strong Uterine Resting Tone: positive: Soft - Monitoring Monitor Mode: positive: External ultrasound Heart Rate Baseline: 140 Heart Rate Variability: positive: Moderate (6-25 bmp) Accelerations: positive: Present, 15x15 Decelerations: positive: None Strip Review: positive: Category I - Vaginal Exam Dilation (in cm): 6 Effacement (%): 100 Station: -2 Cervical Position: Midposition - Labor Progress Note Labor Progress Note/Additional Text: 27yo at 39.5w in active labor - AROM clear 1700 - Anticipate - Cat 1
[2022-06-18] MEDS ORDERED: HYDROCORTISONE 1% CREAM 28 GM TUBE PR PRN (19:17)
[2022-06-18] MEDS ORDERED: WITCH HAZEL/GLYCERIN 1 PAD TOP PRN (19:17)
--- NOTE | 2022-06-18 19:28 | DELIVERY NOTE ---
Delivery Note - Labor Labor: positive: Spontaneous - Delivery Method Delivery Method: positive: Spontaneous vaginal delivery - Presentation Presentation: positive: Vertex, LUIS - left occiput anterior - Nuchal Cord Nuchal Cord: positive: None - Anesthetic Anesthetic Type: - Amniotic Fluid Description Amniotic Fluid Description: positive: Clear - Laceration Laceration: positive: None - Delivery Outcome Delivery Outcome: positive: Livebirth - Inlet: positive: Placed in direct skin contact with mother, Suctioned, Stimulated, Warmed Inlet sex: positive: Female - Cord Cord: positive: 3 vessels - Placenta Placenta: positive: Intact, Spontaneous - Estimated Blood Loss Estimated Blood Loss (in cc): 50 - Delivery Comments (Free Text/Narrative) Delivery Comments (Free Text/Narrative): Laboring unmedicated. Feels urge to push. 10/100/+2. Head delivered, LUIS. Body delivered with ease. Baby placed on mother's abdomen. Delayed cord clamping. Cord blood collected. Fundus firm. Placenta delivered spontaneously and intact, 3vc. Vagina and perineum inspected- no lacerations. Family bonding at bedside, doing well. Apgars 8,9.
[2022-06-18] MEDS: ACETAMINOPHEN 500 MG TABLET PO SCH (19:48)
[2022-06-19] MEDS: DOCUSATE SODIUM 100 MG CAPSULE PO SCH ×2 (00:47→08:34)
[2022-06-19] MEDS: IBUPROFEN 800 MG TABLET PO SCH ×4 (00:47→18:42)
[2022-06-19] MEDS: ACETAMINOPHEN 500 MG TABLET PO SCH ×2 (04:01→12:10)
[2022-06-19 16:11] VITALS: BP 112/61
--- NOTE | 2022-06-19 17:48 | Discharge Plan ---
Discharge Plan Problem Reviewed?: Yes Disposition: Home, Self Care Condition: Good Diet: Regular Activity Restrictions: Pelvic rest Shower Restrictions: No Driving Restrictions: No Weight Bearing: Full Weight Instruction Topics: Vaginal After, Depression , Additional Instructions or Follow Up instructions: [facility] up at [facility] 4 weeks or earlier as needed. No Smoking: If you smoke, Please STOP! Call for help. Follow-up with: Dot Barrera DO [Provider Admit Priv/Credential] -
--- NOTE | 2022-06-19 17:53 | DISCHARGE SUMMARY ---
"Discharge Summary Admit Date: 06/18/22 Discharge Date: 06/19/22 Discharging Provider: Dot Barrera DO Code Status: Attempt Resuscitation Condition at Discharge: Good Discharge Disposition: 01 Home, Self Care Discharge Facility Name: [facility] - DIAGNOSES Discharge Diagnoses with Status of Each Condition: Active labor in multiparous female 39 weeks - HPI History of Present Illness: 27yo admitted 06/18/22 at 39.5w in active labor. - CONSULTS | PROCEDURES Procedures: AROM - HOSPITAL COURSE Hospital Course: 27yo admitted 06/18/22 at 39.5w in active labor. She progressed to 6cm. AROM performed, clear. Progressed to 10cm and uncomplicated . Recovering appropriately , desires discharge PPD#1. well, mood good and meets criteria for discharge. care reviewed. Follow up at . - ALLERGIES Allergies/Adverse Reactions: Allergies Allergy/AdvReac Type Severity Reaction Status Date / Time No Known Drug Allergies Allergy Verified 02/01/19 09:59 - MEDICATIONS Home Medications: Ambulatory Orders Medication Instructions Recorded Confirmed No122/Iron/Folic Acid 1 each PO 12/01/18 [ Multi Tablet] cephALEXin [Keflex] 500 mg PO Q6H #20 capsule 02/01/19 - PHYSICAL EXAM AT DISCHARGE General Appearance: positive: No acute distress Eyes Bilateral: positive: EOMI Respiratory: positive: No respiratory distress Cardiovascular: positive: Regular rate & rhythm Abdomen: positive: Non-tender Skin: positive: Color nml Extremities: positive: Non-tender Neurologic/Psychiatric: positive: Oriented x3 - LABS Result Diagrams: 06/18/22 12:25 - QUALITY (Female Hip Fx Only) Was patient sent home on osteoporosis medication?: No - FOLLOW UP Follow Up: Follow up [facility] in [facility]. - TIME SPENT Time Spent in Discharge (Minutes): 30"
--- NOTE | 2022-06-19 20:19 | Labor Flowsheet ---
Labor Flowsheet Datetime Report Generated by CPN: 06/19/2022 20:19 Datetime: 06/19/2022 16:10 : 74 Datetime: 06/18/2022 19:18 Stage of : Recovery Datetime: 06/18/2022 19:05 MEDICATIONS Pitocin (milliunits): Started @ 333 Datetime: 06/18/2022 18:55 STAGE 2 Pushing: Involuntary Pushing Pushing Position: Pushing Squatting (Annotations: Pt pushing in hands and knees position) Pushing Progress: with Pushing COMMUNICATION Communication: Provider at Bedside Datetime: 06/18/2022 18:50 Patient Position/Activity: Hands-Knees Datetime: 06/18/2022 18:47 VAGINAL EXAM Dilatation (cm): 9.0 Effacement (%): 100 Exam by: Dr. [place]ab Datetime: 06/18/2022 18:45 UTERINE ACTIVITY Monitor Mode: External Frequency (min): 2-3 Quality: Strong Duration (sec): 90-150 Pattern: Normal: <= 5 Contractions in 10 Minutes Resting Tone (Palpate): Relaxed Contraction Comments: feeling pressure, crying out with contractions ASSESSMENT A Monitor Mode: Telemetry FHR Baseline Rate : 130 Variability: Moderate 6-25 bpm Accelerations: 15X15 Decelerations: Variable Category: Category II Comments: Intermittent strip picker due to maternal activity Datetime: 06/18/2022 18:44 Patient Care Comments: out of jacuzzi Datetime: 06/18/2022 18:10 Pain Assessment Comments: jacuzzi Comfort Measures: Hot Shower/Tub/Spa LaborFlag: Labor Datetime: 06/18/2022 17:54 Station: -1 Datetime: 06/18/2022 17:18 SpO2 (%): 100 Temperature (C): 36.9 Temperature Route: Oral Datetime: 06/18/2022 16:50 Membranes Rupture Method: Artificial Amniotic Fluid Color: Clear Amniotic Fluid Amount: Moderate Amniotic Fluid Odor: Normal Vaginal Bleeding: None Datetime: 06/18/2022 14:59 PATIENT CARE Oxygen Method: Room Air Datetime: 06/18/2022 14:56 VITAL SIGNS NBP Sys/Stephanie/Mean (mmHg): 112 : 65 Pulse: 87 Respirations: 18 Datetime: 06/18/2022 14:53 I/O Interventions: Up to BR Datetime: 06/18/2022 13:43 PAIN Pain Scale: 4 Pain Presence: Intermittent Pain Type: Contraction Pain Location: Abdomen; Back Pain Relief Measures: Comfort Measures Pain Coping: Breathing Through Contractions; Declines Medication or Epidural MATERNAL ASSESSMENT Level of Consciousness: Alert Headache: Denies Breath Sounds, Left: Clear and Equal Breath Sounds, Right: Clear and Equal Nausea/Vomiting: Denies RUQ Epigastric Pain: Denies Datetime: 06/18/2022 13:25 Communication Comments: Educated patient on movement and position changes to promote ideal position ing d/t feeling back pain with contractions and thinking it could be that baby is OP at this time
== END 2022-06-19 20:00 | disposition home or self-care (01) | DRG 807 ==
LOC: WFO 11:33 → FBP 11:35 → WFO 11:59 → FBP 12:02 → UNDOADMIN 12:14 → FBP 12:14
PROVIDERS: ADMIT Obstetrics & Gynecology; ATTEND Obstetrics & Gynecology
PROC: 10907ZC Drainage of Amniotic Fluid, Therapeutic from Products of Conception, Via Natural or Artificial Opening (ICD-10-PCS; principal; 2022-06-18)
PROC: 10E0XZZ Delivery of Products of Conception, External Approach (ICD-10-PCS; 2022-06-18)
DX: O98.32 Other infections with a predominantly sexual mode of transmission complicating childbirth (principal); Z37.0 Single live birth; A60.09 Herpesviral infection of other urogenital tract; O99.344 Other mental disorders complicating childbirth; F41.9 Anxiety disorder, unspecified; Z3A.39 39 weeks gestation of pregnancy; Z79.899 Other long term (current) drug therapy; O99.891 Other specified diseases and conditions complicating pregnancy; H52.10 Myopia, unspecified eye
CPT/HCPCS: 85025; 86850; 86900; 86901; A9270; J7120; 99213

== ENCOUNTER 2023-10-31 13:39 | Emergency (ER) | payer OTHER ==
[2023-10-31 13:54] VITALS: O2SAT 100
[2023-10-31] MEDS: HYDROmorphone 1 MG/ML CARPUJECT IM STA (14:15)
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
[2023-10-31] MEDS: ONDANSETRON ODT 4 MG TABLET TL STA (14:51)
[2023-10-31 15:32] VITALS: BP 112/63
== END 2023-10-31 15:18 | disposition home or self-care (01) ==
LOC: ED 13:39
DX: T21.21XA Burn of second degree of chest wall, initial encounter (principal); T21.22XA Burn of second degree of abdominal wall, initial encounter; X12.XXXA Contact with other hot fluids, initial encounter; Z79.899 Other long term (current) drug therapy
CPT/HCPCS: 96372; 99283; J1170; Q0162